=== PATIENT | female | born 1965 | race Caucasian/White ===

== ENCOUNTER 2016-09-27 12:03 | Outpatient (CLI) | payer MEDICAID ==
--- NOTE | 2016-09-27 16:56 | Mammography Report ---
DIGITAL DIAGNOSTIC BILATERAL MAMMOGRAM: 09/27/2016 CLINICAL INDICATION: Right breast pain. TECHNIQUE: Bilateral CC and MLO views, bilateral laterally exaggerated CC views, right true lateral v iew. Markers were placed at the site of maximal tenderness identified by the patient in the right upp er central breast. COMPARISON: Films from [place], [place] dated 05/08/2013, 02/14/2012. FINDINGS: The breasts demonstrate scattered fibroglandular densities bilaterally. A few punctate, ty pically benign calcifications are present. No suspicious masses, clustered microcalcifications, or re gions of architectural distortion are identified. IMPRESSION: BENIGN FINDINGS. RECOMMENDATION: ROUTINE ANNUAL SCREENING UNLESS OTHERWISE CLINICALLY INDICATED. BIRADS CATEGORY 2-BENIGN FINDINGS. STANDARD QUALIFYING STATEMENTS 1. This examination was reviewed with the aid of Computer-Aided Detection (CAD). 2. A negative or benign imaging report should not delay biopsy if clinically suspicious findings are present. Consider surgical consultation if warranted. More than 5% of cancers are not identified by i maging. 3. Dense breasts may obscure an underlying neoplasm. JOB #: [id number] EXT JOB #:[id number]
== END 2016-09-27 12:04 | disposition home or self-care (01) ==
LOC: DI 12:03
PROVIDERS: ATTEND Nurse Practitioner Family
DX: N64.4 Mastodynia (principal)
CPT/HCPCS: 77066

== ENCOUNTER 2017-05-01 08:02 | Outpatient (CLI) | payer MEDICAID ==
[2017-05-01 13:10] LABS: THYROID STIMULATING HORMONE 13.08 uIU/mL (0.34-5.60)
[2017-05-01 13:12] LABS: FERRITIN 16.2 ng/mL (11.0-306.8)
[2017-05-01 13:38] LABS: BASOPHILS % (AUTO) 0.9 %; EOSINOPHILS # (AUTO) 0.3 10^3/uL (0.0-0.7); HGB - HEMOGLOBIN 13.4 g/dL (12.0-16.0); LYMPHOCYTES # (AUTO) 1.5 10^3/uL (1.5-3.5); LYMPHOCYTES % (AUTO) 37.6 %; MEAN CORPUSCULAR HEMOGLOBIN 30.1 pg (27.0-31.0); MEAN CORPUSCULAR VOLUME 88.5 fL (81.0-99.0); MEAN PLATELET VOLUME 7.8 fL (7.9-10.8); MONOCYTES # (AUTO) 0.3 10^3/uL (0.0-1.0); NEUTROPHILS # (AUTO) 1.9 10^3/uL (1.5-6.6); NEUTROPHILS % (AUTO) 47.5 %; PLT - PLATELET COUNT 216 10^3/uL (130-450); RED BLOOD COUNT 4.45 10^6/uL (4.20-5.40); RED CELL DISTRIBUTION WIDTH 13.1 % (12.0-15.0); WHITE BLOOD COUNT 3.9 x10^3/uL (4.8-10.8)
[2017-05-01 13:46] LABS: % IRON SATURATION 21 % (20-50); ALBUMIN 4.2 g/dL (3.2-5.5); ALBUMIN/GLOBULIN RATIO 1.4 (1.0-2.2); ALKALINE PHOSPHATASE 35 IU/L (42-121); ALT ALANINE AMINOTRANSFERASE 13 IU/L (10-60); AST ASPARTATE AMINOTRANSFERASE 18 IU/L (10-42); BILIRUBIN,TOTAL 0.5 mg/dL (0.2-1.0); BUN - BLOOD UREA NITROGEN 15 mg/dL (6-20); CALCIUM 9.4 mg/dL (8.5-10.3); CARBON DIOXIDE - CO2 27 mmol/L (21-32); CHLORIDE 100 mmol/L (101-111); CHOL/HDL RATIO 3.5 (<4.4); CHOLESTEROL 197 mg/dL; CREATININE 0.9 mg/dL (0.4-1.0); GFR - MDRD 66 (>89); GLUCOSE 91 mg/dL (70-100); HDL CHOLESTEROL 57 mg/dL; IRON 75 ug/dL (28-170); LDL CHOLESTEROL,CALCULATED 116 mg/dL; SODIUM 136 mmol/L (135-145); TOTAL IRON BINDING CAPACITY 365 ug/dL (250-450); TOTAL PROTEIN 7.2 g/dL (6.7-8.2); TRANSFERRIN 261 mg/dL (192-382); VLDL CHOLESTEROL 24 mg/dL
[2017-05-01 13:54] LABS: FREE T4 (FREE THYROXINE) 0.64 ng/dL (0.58-1.64)
== END 2017-05-01 08:03 | disposition home or self-care (01) ==
LOC: LAB.F 08:02
PROVIDERS: ATTEND Physician Assistant Medical
DX: Z00.00 Encounter for general adult medical examination without abnormal findings (principal); Z13.89 Encounter for screening for other disorder; E55.9 Vitamin D deficiency, unspecified; E61.1 Iron deficiency; G25.81 Restless legs syndrome; Z13.0 Encounter for screening for diseases of the blood and blood-forming organs and certain disorders involving the immune mechanism
CPT/HCPCS: 36415; 80053; 80061; 82306; 82728; 83540; 84439; 84443; 84466; 85025

== ENCOUNTER 2017-05-11 08:41 | Outpatient (CLI) | payer MEDICAID ==
[2017-05-11 10:47] LABS: THYROID STIMULATING HORMONE 10.29 uIU/mL (0.34-5.60)
[2017-05-11 11:28] LABS: FREE T4 (FREE THYROXINE) 0.63 ng/dL (0.58-1.64)
== END 2017-05-11 08:42 | disposition home or self-care (01) ==
LOC: LAB.F 08:41
PROVIDERS: ATTEND Physician Assistant Medical
DX: Z13.29 Encounter for screening for other suspected endocrine disorder (principal); R94.6 Abnormal results of thyroid function studies
CPT/HCPCS: 36415; 84439; 84443; 84481

== ENCOUNTER 2017-05-31 10:46 | Outpatient (CLI) | payer MEDICAID ==
--- NOTE | 2017-05-31 17:05 | Ultrasound Report ---
THYROID ULTRASOUND: 05/31/2017 CLINICAL INDICATION: Abnormal thyroid function studies. TECHNIQUE: Real-time scanning was performed with sales representative trainee static images obtained. FINDINGS: The right lobe measures 5.6 x 1.9 x 1.9 cm, and the left lobe measures 4.2 x 1.8 x 1.5 cm. The isthmus measures 2 mm. Both lobes of the thyroid are diffusely heterogeneous, with multiple solid nodules present. The majority of the nodules are isoechoic, with circumscribed margins. The largest single nodule, in the posterior upper left lobe is hyperechoic, with circumscribed margins. As such, the nodules fall into the low suspicion category, and given that the mean diameter of the largest nodule is 1.2 cm, fine needle aspiration is not recommended by EMERALD criteria. IMPRESSION: MULTINODULAR THYROID, WITH NODULES HAVING AN APPEARANCE THAT FALLS INTO THE LOW SUSPICION CATEGORY BY EMERALD CRITERIA. SUCH, GIVEN THE SMALL SIZE OF THE NODULES, FINE NEEDLE ASPIRATION IS NOT RECOMMENDED BY EMERALD CRITERIA. TD: 05/31/2017 17:05
== END 2017-05-31 10:47 | disposition home or self-care (01) ==
LOC: DI 10:46
PROVIDERS: ATTEND Physician Assistant Medical
DX: E04.2 Nontoxic multinodular goiter (principal)
CPT/HCPCS: 76536

== ENCOUNTER 2017-06-11 12:14 | Day surgery (SDC) | payer MEDICAID ==
[2017-06-11] MEDS ORDERED: LACTATED RINGERS 1,000 ML IV ONE (12:45)
[2017-06-11] MEDS ORDERED: MIDAZOLAM 2 MG/2 ML VIAL IVP ONE (13:36)
[2017-06-11] MEDS ORDERED: fentaNYL 100 MCG/2 ML VIAL IVP ONE (13:36)
[2017-06-11 14:54] VITALS: BP 101/54
== END 2017-06-11 12:15 | disposition home or self-care (01) ==
LOC: SDS 12:14
PROVIDERS: ATTEND Surgery
PROC: 0DJD8ZZ Inspection of Lower Intestinal Tract, Via Natural or Artificial Opening Endoscopic (ICD-10-PCS; principal; 2017-06-11 13:30)
DX: Z12.11 Encounter for screening for malignant neoplasm of colon (principal); K64.8 Other hemorrhoids; J45.909 Unspecified asthma, uncomplicated
CPT/HCPCS: 45378; J7120

== ENCOUNTER 2018-06-04 07:58 | Outpatient (CLI) | payer OTHER | END 2018-06-04 07:59 | disposition home or self-care (01) | LOC: LAB.F 07:58 | PROVIDERS: ATTEND Physician Assistant Medical | DX: R94.6 Abnormal results of thyroid function studies (principal) | CPT/HCPCS: 36415; 84443; 84481 ==

== ENCOUNTER 2018-06-24 08:12 | Outpatient (CLI) | payer OTHER ==
[2018-06-24 10:49] LABS: BASOPHILS % (AUTO) 0.6 %; EOSINOPHILS # (AUTO) 0.2 10^3/uL (0.0-0.7); EOSINOPHILS % (AUTO) 6.4 %; HGB - HEMOGLOBIN 12.9 g/dL (12.0-16.0); LYMPHOCYTES # (AUTO) 1.7 10^3/uL (1.5-3.5); MEAN CORPUSCULAR HEMOGLOBIN 29.1 pg (27.0-31.0); MEAN CORPUSCULAR HGB CONC 34.4 g/dL (32.0-36.0); MEAN CORPUSCULAR VOLUME 84.8 fL (81.0-99.0); MEAN PLATELET VOLUME 7.6 fL (7.9-10.8); MONOCYTES # (AUTO) 0.3 10^3/uL (0.0-1.0); MONOCYTES % (AUTO) 7.4 %; NEUTROPHILS # (AUTO) 1.6 10^3/uL (1.5-6.6); NEUTROPHILS % (AUTO) 40.6 %; PLT - PLATELET COUNT 228 10^3/uL (130-450); RED BLOOD COUNT 4.41 10^6/uL (4.20-5.40); WHITE BLOOD COUNT 3.8 x10^3/uL (4.8-10.8)
[2018-06-24 10:53] LABS: ALBUMIN/GLOBULIN RATIO 1.5 (1.0-2.2); BILIRUBIN,TOTAL 0.5 mg/dL (0.2-1.0); CALCIUM 9.7 mg/dL (8.5-10.3); CREATININE 0.8 mg/dL (0.4-1.0); TOTAL PROTEIN 6.6 g/dL (6.7-8.2)
== END 2018-06-24 08:13 | disposition home or self-care (01) ==
LOC: LAB.F 08:12
PROVIDERS: ATTEND Physician Assistant Medical
DX: Z51.81 Encounter for therapeutic drug level monitoring (principal); Z79.899 Other long term (current) drug therapy
CPT/HCPCS: 36415; 80053; 85025

== ENCOUNTER 2019-12-19 14:10 | Outpatient (CLI) | payer MEDICAID | END 2019-12-19 14:11 | disposition home or self-care (01) | LOC: COV 14:10 | PROVIDERS: ATTEND Family Medicine | DX: J02.9 Acute pharyngitis, unspecified (principal); Z20.828 Contact with and (suspected) exposure to other viral communicable diseases ==

== ENCOUNTER 2020-03-10 12:38 | Outpatient (CLI) | payer MEDICAID ==
[2020-03-10 15:43] LABS: BASOPHILS % (AUTO) 0.6 %; EOSINOPHILS # (AUTO) 0.1 10^3/uL (0.0-0.7); EOSINOPHILS % (AUTO) 3.9 %; HGB - HEMOGLOBIN 12.8 g/dL (12.0-16.0); LYMPHOCYTES # (AUTO) 1.2 10^3/uL (1.5-3.5); LYMPHOCYTES % (AUTO) 34.6 %; MEAN CORPUSCULAR HEMOGLOBIN 29.1 pg (27.0-31.0); MEAN CORPUSCULAR HGB CONC 32.2 g/dL (32.0-36.0); MEAN CORPUSCULAR VOLUME 90.5 fL (81.0-99.0); MEAN PLATELET VOLUME 9.9 fL (7.9-10.8); MONOCYTES # (AUTO) 0.3 10^3/uL (0.0-1.0); NEUTROPHILS # (AUTO) 1.9 10^3/uL (1.5-6.6); NEUTROPHILS % (AUTO) 53.9 %; PLT - PLATELET COUNT 217 10^3/uL (130-450); RED CELL DISTRIBUTION WIDTH 12.9 % (12.0-15.0); WHITE BLOOD COUNT 3.6 x10^3/uL (4.8-10.8)
[2020-03-10 16:16] LABS: % IRON SATURATION 26 % (20-50); ALBUMIN 4.2 g/dL (3.2-5.5); ALBUMIN/GLOBULIN RATIO 1.3 (1.0-2.2); ALKALINE PHOSPHATASE 46 IU/L (42-121); ALT ALANINE AMINOTRANSFERASE 19 IU/L (10-60); AST ASPARTATE AMINOTRANSFERASE 22 IU/L (10-42); BILIRUBIN,TOTAL 0.6 mg/dL (0.2-1.0); BUN - BLOOD UREA NITROGEN 13 mg/dL (6-20); CALCIUM 9.5 mg/dL (8.5-10.3); CARBON DIOXIDE - CO2 28 mmol/L (21-32); CHLORIDE 102 mmol/L (101-111); CHOL/HDL RATIO 3.4 (<4.4); CHOLESTEROL 221 mg/dL; CREATININE 0.8 mg/dL (0.4-1.0); GLUCOSE 103 mg/dL (70-100); HDL CHOLESTEROL 65 mg/dL; IRON 105 ug/dL (28-170); LDL CHOLESTEROL,CALCULATED 128 mg/dL; SODIUM 139 mmol/L (135-145); TOTAL IRON BINDING CAPACITY 403 ug/dL (250-450); TOTAL PROTEIN 7.4 g/dL (6.7-8.2); TRANSFERRIN 288 mg/dL (192-382); VLDL CHOLESTEROL 28 mg/dL
== END 2020-03-10 12:39 | disposition home or self-care (01) ==
LOC: LAB.S 12:38
PROVIDERS: ATTEND Physician Assistant
DX: Z00.00 Encounter for general adult medical examination without abnormal findings (principal); Z51.81 Encounter for therapeutic drug level monitoring; R94.6 Abnormal results of thyroid function studies; E55.9 Vitamin D deficiency, unspecified; E61.1 Iron deficiency; L65.9 Nonscarring hair loss, unspecified; Z79.899 Other long term (current) drug therapy
CPT/HCPCS: 36415; 80053; 80061; 82728; 83540; 83721; 84443; 84466; 85025

== ENCOUNTER 2021-05-04 09:42 | Outpatient (CLI) | payer MEDICAID ==
--- NOTE | 2021-05-05 13:45 | Mammography Report ---
BILATERAL DIGITAL SCREENING MAMMOGRAM 3D/2D WITH EXAGGERATED CC: 05/04/2021 CLINICAL: Routine screening. Comparison is made to exams dated: 09/27/2016 mammogram - [facility] and 02/14/2012 mammogram - [facility]. There are scattered fibroglandular elements in both breast s. No significant masses, calcifications, or other findings are seen in either breast. There has been no significant interval change. IMPRESSION: NEGATIVE There is no mammographic evidence of malignancy. A 1 year screening mammogram is recommended. This exam was interpreted at Station ID: [id number]. NOTE: For mammograms, a report in lay terms will be sent to the patient. Approximately 15% of breast malignancies will not be visualized mammographically. In the management of a palpable breast mass, a negative mammogram must not discourage biopsy of a clinically suspicious lesion. Electronically Signed By: Jeramie Allen acr/penrad:05/04/2021 10:36:27 ACR BI-RADS Category 1: Negative 3341F PARENCHYMAL PATTERN: (A) - The breast(s) demonstrate(s) scattered fibroglandular densities. BI-RADS CATEGORY: (1) - 1 RECOMMENDATION: (ANNUAL) - Recommend routine annual screening mammography. [id number] 1 year screening LATERALITY: (B)
== END 2021-05-04 09:43 | disposition home or self-care (01) ==
LOC: DI.S 09:42
PROVIDERS: ATTEND Registered Nurse
DX: Z12.31 Encounter for screening mammogram for malignant neoplasm of breast (principal)

== ENCOUNTER 2021-06-15 15:12 | Outpatient (CLI) | payer MEDICAID ==
--- NOTE | 2021-06-18 14:56 | Ultrasound Report ---
PROCEDURE: Head or Neck Soft Tissue INDICATIONS: HYPOTHYROIDISM TECHNIQUE: Real-time scanning was performed of the thyroid gland, with image documentation. COMPARISON: Thyroid ultrasound 05/31/2017 FINDINGS: Right: Thyroid lobe measures 5.1 x 1.8 x 2.3 cm, and is heterogeneous in echotexture. Left: Thyroid lobe measures 4.5 x 1.9 x 1.5 cm, and is heterogeneous in echotexture. Isthmus: 2 mm thick. Nodule number: One Location: Right superior Size: 0.7 x 0.5 x 0.6 cm compared to 0.8 x 0.7 x 0.8 cm. Composition: Solid Echogenicity: Hypoechoic Shape: wider than tall. Margins: Smooth Echogenic foci: None Total points: 4 ACR TI-RADS category: 4 Nodule number: Two Location: Right midlung Size: 0.9 x 0.6 x 1.0 cm compared to 0.9 x 0.8 x 0.8 cm. Composition: 7 Echogenicity: Isoechoic Shape: wider than tall. Margins: Smooth Echogenic foci: None Total points: 4 ACR TI-RADS category: 4 Nodule number: Three Location: Right inferior Size: 1.2 x 1.0 x 1.2 cm compared to 1.0 x 0.9 x 1.0 cm. Composition: Predominantly solid Echogenicity: Hypoechoic Shape: wider than tall. Margins: Smooth Echogenic foci: None Total points: 4 ACR TI-RADS category: 4 Nodule number: Four Location: Right inferior Size: 1.2 x 1.0 x 1.4 cm compared to 1.1 x 1.1 x 1.4 cm. Composition: Prominently solid Echogenicity: Size Shape: Hypoechoic Margins: Smooth Echogenic foci: None Total points: 4 ACR TI-RADS category: 4 Nodule number: 5 Location: Left superior Size: 1.4 x 0.9 x 1.1 cm compared to 1.3 x 1.0 x 1.2 cm cm. Composition: Sagittal Echogenicity: Isoechoic Shape: wider than tall. Margins: Smooth Echogenic foci: None Total points: 4 ACR TI-RADS category: 4 Nodule number: 6 Location: Left medial mid lobe Size: 0.7 x 0.4 x 0.7 cm compared to 0.7 x 0.5 x 0.7 cm. Composition: Solid Echogenicity: Hypoechoic Shape: wider than tall. Margins: Smooth Echogenic foci: None Total points: 4 ACR TI-RADS category: TI-RADS Nodule number: 7 Location: Left mid lateral Size: 0.9 x 0.6 x 0.7 cm compared to 0.7 x 0.8 x 0.6 cm. Composition: Solid Echogenicity: Hypoechoic Shape: wider than tall. Margins: Smooth Echogenic foci: None Total points: Size ACR TI-RADS category: 4 IMPRESSION: Multiple thyroid lobe nodules relatively stable compared to prior exam. Lesions 1, 2, 6 and 7 are considered category 4. Secondary to small size, no additional follow-up is recommended. Lesions 3, 4 and 5 are considered category 4,follow-up at 1, 2, 3 and 5 years from initial visualizat ion is recommended. It is noted that initial visualization was in 2018, making current follow-up at t he 4 year sheba. ACR TI-RADS definitions and recommendations: TI-RADS 1 (benign): 0 points. FNA not needed. TI-RADS 2 (not suspicious): 2 points. FNA not needed. TI-RADS 3 (mildly suspicious): 3 points. "FNA if 2.5 cm or larger, follow up if 1.5 cm or larger (at 1, 3, and 5 years). TI-RADS 4 (moderately suspicious): 4-6 points. "FNA if 1.5 cm or larger, follow up if 1 cm or larger (at 1, 2, 3, and 5 years). TI-RADS 5 (highly suspicious): 7 points or more. "FNA if 1 cm or larger, follow up if 0.5 cm or larger (every year for 5 years). Reviewed by: Sharon Kuo MD on 06/18/2021 2:55 PM PST Approved by: Sharon Kuo MD on 06/18/2021 2:55 PM PST Station ID: [id number]
== END 2021-06-15 15:13 | disposition home or self-care (01) ==
LOC: DI 15:12
PROVIDERS: ATTEND Internal Medicine
DX: E03.9 Hypothyroidism, unspecified (principal); E04.2 Nontoxic multinodular goiter

== ENCOUNTER 2022-02-27 14:02 | Outpatient (CLI) | payer MEDICAID ==
[2022-02-27 19:42] LABS: BASOPHILS % (AUTO) 0.4 %; EOSINOPHILS # (AUTO) 0.3 10^3/uL (0.0-0.7); EOSINOPHILS % (AUTO) 5.6 %; HCT - HEMATOCRIT 40.9 % (37.0-47.0); HGB - HEMOGLOBIN 13.5 g/dL (12.0-16.0); LYMPHOCYTES # (AUTO) 1.6 10^3/uL (1.5-3.5); LYMPHOCYTES % (AUTO) 33.5 %; MEAN CORPUSCULAR HEMOGLOBIN 29.6 pg (27.0-31.0); MEAN CORPUSCULAR VOLUME 89.7 fL (81.0-99.0); MEAN PLATELET VOLUME 9.8 fL (7.9-10.8); MONOCYTES # (AUTO) 0.3 10^3/uL (0.0-1.0); MONOCYTES % (AUTO) 7.1 %; NEUTROPHILS # (AUTO) 2.6 10^3/uL (1.5-6.6); NEUTROPHILS % (AUTO) 53.2 %; PLT - PLATELET COUNT 199 10^3/uL (130-450); RED BLOOD COUNT 4.56 10^6/uL (4.20-5.40); RED CELL DISTRIBUTION WIDTH 12.6 % (12.0-15.0); WHITE BLOOD COUNT 4.8 x10^3/uL (4.8-10.8)
[2022-02-27 20:12] LABS: ALBUMIN 4.3 g/dL (3.2-5.5); ALBUMIN/GLOBULIN RATIO 1.3 (1.0-2.2); ALKALINE PHOSPHATASE 51 IU/L (42-121); ALT ALANINE AMINOTRANSFERASE 19 IU/L (10-60); AST ASPARTATE AMINOTRANSFERASE 20 IU/L (10-42); BILIRUBIN,TOTAL 0.7 mg/dL (0.2-1.0); BUN - BLOOD UREA NITROGEN 14 mg/dL (6-20); CALCIUM 9.5 mg/dL (8.5-10.3); CARBON DIOXIDE - CO2 28 mmol/L (21-32); CHLORIDE 104 mmol/L (101-111); CHOL/HDL RATIO 3.2 (<4.4); CHOLESTEROL 218 mg/dL; CREATININE 0.7 mg/dL (0.4-1.0); GFR - MDRD 86 (>89); GLUCOSE 91 mg/dL (70-100); HDL CHOLESTEROL 68 mg/dL; LDL CHOLESTEROL,CALCULATED 135 mg/dL; SODIUM 138 mmol/L (135-145); TOTAL PROTEIN 7.5 g/dL (6.7-8.2); TRIGLYCERIDES 75 mg/dL; VLDL CHOLESTEROL 15 mg/dL
[2022-02-27 20:25] LABS: THYROID STIMULATING HORMONE 4.32 uIU/mL (0.34-5.60)
== END 2022-02-27 14:03 | disposition home or self-care (01) ==
LOC: LAB.S 14:02
PROVIDERS: ATTEND Registered Nurse
DX: E03.9 Hypothyroidism, unspecified (principal); Z13.220 Encounter for screening for lipoid disorders
CPT/HCPCS: 36415; 80053; 80061; 83721; 84443; 85025

== ENCOUNTER 2022-04-24 10:46 | Outpatient (CLI) | payer MEDICAID ==
--- NOTE | 2022-04-25 10:30 | Mammography Report ---
BILATERAL DIGITAL SCREENING MAMMOGRAM 3D/2D WITH EXAGGERATED CC: 04/24/2022 CLINICAL: Routine screening. Comparison is made to exams dated: 05/04/2021 mammogram and 09/27/2016 mammogram - [facility]. There are scattered areas of fibroglandular density in both breasts (category b / 25%-50% glandular t issue). No significant masses, calcifications, or other findings are seen in either breast. There has been no significant interval change. IMPRESSION: NEGATIVE There is no mammographic evidence of malignancy. A 1 year screening mammogram is recommended. Based on the Tyrer Cuzick model (a risk assessment model) the patients lifetime risk is 6.7% and her 10 year risk is 2.3%. According to the ACR, ACS, and NCCN guidelines, an annual breast MRI exam luci g with mammogram is recommended if the patients lifetime risk is 20% or greater. This exam was interpreted at Station ID: [id number]. NOTE: For mammograms, a report in lay terms will be sent to the patient. Approximately 15% of breast malignancies will not be visualized mammographically. In the management of a palpable breast mass, a negative mammogram must not discourage biopsy of a clinically suspicious lesion. Electronically Signed By: Garrett morrison/juan:04/24/2022 11:43:13 ACR BI-RADS Category 1: Negative 3341F PARENCHYMAL PATTERN: (A) - The breast(s) demonstrate(s) scattered fibroglandular densities. BI-RADS CATEGORY: (1) - 1 RECOMMENDATION: (ANNUAL) - Recommend routine annual screening mammography. [id number] 1 year screening LATERALITY: (B)
== END 2022-04-24 10:47 | disposition home or self-care (01) ==
LOC: DI.S 10:46
DX: Z12.31 Encounter for screening mammogram for malignant neoplasm of breast (principal)

== ENCOUNTER 2023-02-21 08:33 | Outpatient (CLI) | payer BC ==
[2023-02-21 14:45] LABS: BASOPHILS % (AUTO) 0.9 %; EOSINOPHILS # (AUTO) 0.3 10^3/uL (0.0-0.7); EOSINOPHILS % (AUTO) 9.9 %; HCT - HEMATOCRIT 42.2 % (37.0-47.0); HGB - HEMOGLOBIN 13.6 g/dL (12.0-16.0); LYMPHOCYTES # (AUTO) 1.5 10^3/uL (1.5-3.5); MEAN CORPUSCULAR HEMOGLOBIN 29.5 pg (27.0-31.0); MEAN CORPUSCULAR HGB CONC 32.2 g/dL (32.0-36.0); MEAN CORPUSCULAR VOLUME 91.5 fL (81.0-99.0); MEAN PLATELET VOLUME 9.8 fL (7.9-10.8); MONOCYTES # (AUTO) 0.2 10^3/uL (0.0-1.0); MONOCYTES % (AUTO) 6.9 %; NEUTROPHILS # (AUTO) 1.2 10^3/uL (1.5-6.6); PLT - PLATELET COUNT 196 10^3/uL (130-450); RED BLOOD COUNT 4.61 10^6/uL (4.20-5.40); RED CELL DISTRIBUTION WIDTH 12.8 % (12.0-15.0); WHITE BLOOD COUNT 3.3 x10^3/uL (4.8-10.8)
[2023-02-21 15:14] LABS: THYROID STIMULATING HORMONE 8.48 uIU/mL (0.34-5.60)
[2023-02-21 16:34] LABS: ALBUMIN 4.6 g/dL (3.2-5.5); ALBUMIN/GLOBULIN RATIO 1.8 (1.0-2.2); ALKALINE PHOSPHATASE 57 IU/L (42-121); ALT ALANINE AMINOTRANSFERASE 19 IU/L (10-60); AST ASPARTATE AMINOTRANSFERASE 22 IU/L (10-42); BILIRUBIN,TOTAL 0.5 mg/dL (0.2-1.0); BUN - BLOOD UREA NITROGEN 13 mg/dL (6-20); CALCIUM 9.6 mg/dL (8.5-10.3); CARBON DIOXIDE - CO2 30 mmol/L (21-32); CHLORIDE 105 mmol/L (101-111); CHOL/HDL RATIO 3.6 (<4.4); CHOLESTEROL 213 mg/dL; CREATININE 0.8 mg/dL (0.6-1.3); GFR - MDRD 74 (>89); GLUCOSE 89 mg/dL (74-104); HDL CHOLESTEROL 60 mg/dL; LDL CHOLESTEROL,CALCULATED 133 mg/dL; LDL/HDL RATIO 2.2 (<4.4); POTASSIUM 4.4 mmol/L (3.5-4.5); SODIUM 139 mmol/L (135-145); TOTAL PROTEIN 7.1 g/dL (6.4-8.9); TRIGLYCERIDES 99 mg/dL (48-352); VLDL CHOLESTEROL 20 mg/dL
== END 2023-02-21 08:34 | disposition home or self-care (01) ==
LOC: LAB.S 08:33
PROVIDERS: ATTEND Nurse Practitioner Acute Care
DX: Z13.228 Encounter for screening for other metabolic disorders (principal); Z13.220 Encounter for screening for lipoid disorders; Z13.29 Encounter for screening for other suspected endocrine disorder; Z13.0 Encounter for screening for diseases of the blood and blood-forming organs and certain disorders involving the immune mechanism
CPT/HCPCS: 36415; 80053; 80061; 83721; 84439; 84443; 85025

== ENCOUNTER 2023-02-22 19:22 | Outpatient (CLI) | payer BC ==
--- NOTE | 2023-02-23 16:59 | Ultrasound Report ---
PROCEDURE: Pelvic w/Transvaginal INDICATIONS: POSTMENOPAUSAL BLEEDING TECHNIQUE: Real-time scanning was performed of the pelvic organs, with image documentation. Additional endovagi nal scanning was necessary due to incomplete visualization of the adnexal and endometrial structures by transabdominal scanning. COMPARISON: None. FINDINGS: Uterus: Uterus is anteverted and normal in size at 7.4 x 4.6 x 5.5 cm. The myometrium is heterogene ous. The endometrium measures 6.3 mm in combined thickness. Left lateral focus of heterogeneous ech ogenicity measuring 1.5 x 1.8 x 1.2 cm. Ovaries: The right ovary measures 1.4 x 0.9 x 2.1 cm, with a calculated ovarian volume of 1.4 cc. T he left ovary is not well seen. Other: No pathologic free abdominal or pelvic fluid. IMPRESSION: Focus of left lateral heterogeneous echogenicity suggestive of small intramural fibroid. In addition, endometrium is thickened for postmenopausal age with bleeding. Further evaluation with e ndometrial sampling is recommended. No distinct mass. Reviewed by: Sharon Kuo MD on 02/23/2023 4:58 PM PST Approved by: Sharon Kuo MD on 02/23/2023 4:58 PM PST Station ID: [id number]
== END 2023-02-22 19:23 | disposition home or self-care (01) ==
LOC: DI 19:22
PROVIDERS: ATTEND Nurse Practitioner Acute Care
DX: N95.0 Postmenopausal bleeding (principal); R93.89 Abnormal findings on diagnostic imaging of other specified body structures

== ENCOUNTER 2023-04-03 07:40 | Outpatient (CLI) | payer BC ==
--- NOTE | 2023-04-03 07:31 | CARDIAC PROCEDURE NOTE ---
Stress Test Report Service Date: 04/03/23 Service Time: 08:00 Ordering Provider: Shavon Velez ARNP Indication for Test: Assess chest discomfort. Significant Medical History: Tami is referred for a treadmill stress echocardiogram today, to evaluate two significant episodes of chest discomfort occurring about 1 year apart. Last fall while traveling in [place] she had a chest pain episode of similar nature to the recent one, that prompted an evaluation at a local clinic, where she was told that an EKG was normal. She had no recurrence until a few weeks ago, when she awoke from sleep with heavy central chest discomfort that radiated up to her neck and posteriorly to her back. There was no associated nausea, vomiting, diaphoresis or lightheadedness and after she arose and moved about the symptoms resolved after about 10 minutes. She works as a massage therapist and is active outside the workplace, doing yoga and walking in her neighborhood, though she does limit the intensity/duration of her walking due to her asthma, which may not be optimally treated currently. She has not had any exertional chest discomfort nor any recent decrease in her exercise capacity. As part of this evaluation she also underwent a 7-day ambulatory monitoring study that showed 2 brief episodes of atrial tachycardia and no other findings of concern. Cardiac Risk Factors: Positive for family history of coronary artery disease in her mother who at about the same age underwent a coronary stent procedure (she notes that her mother was a longtime smoker); no personal history of tobacco smoking ever, hypertension, diabetes or known hyperlipidemia (though recent lipids on 02/21/2023 did include TC 213 [id number], HDLc 60, TG 99). Type of Stress Test: ETT with Echocardiography Procedure: -Exercise Treadmill Test- After signing informed consent, the patient underwent echo imaging at rest and then performed treadmill exercise using a Oleg protocol. The patient exercised for 4 minutes 41 seconds and achieved a peak heart rate of 164 (101 percent predicted maximum heart rate for age), and an estimated workload of 6.6 METS. The test was terminated due to fatigue/shortness of breath. Resting heart rate: 66 Peak heart rate: 164 NormalAbnormal response to exercise. Resting BP: 124/83 Peak BP: 187/75 Normal BP response to exercise. Rhythm during exercise: Sinus rhythm throughout with occasional isolated PVCs and 2 PVC couplets noted; there were 32 PVCs documented in the computer record. Symptoms: She reported no chest pressure/discomfort/pain whatsoever; dyspnea was limiting, which she attributed both to her asthma and some deconditioning. EKG at rest showed . Normal sinus rhythm notable only for slight [place] prolongation (203 ms). EKG at peak stress showed no ischemia by EKG criteria. In Recovery her BP dropped from exertional peak (155/95) to 124/76, with subsequent increase to study peak of 187/75 and then stepwise decline towards baseline (154/78 at 9:00); heart rate declined rapidly/normally towards baseline (93 at 9:00). Echo imaging, performed at rest and with stress, will be reported separately. IPrashanth MD, was present throughout this treadmill stress study and supervised it in its entirety. Summary: 1) Exercise tolerance markedly reduced for age and sex as evidenced by CLAY of 32%. 2) Normal resting EKG. 3) Adequate level of exercise was achieved on this treadmill stress test. 4) Normal BP response to exercise. 5) No ischemic changes by EKG criteria were seen at peak stress. 6) Echo image interpretation reveals normal left ventricular size, wall thickness and systolic function, with appropriate hyperdynamic augmentation of all segments with exercise, indicating no evidence of prior infarct or inducible ischemia. No significant valvular abnormality or elevation of estimated pulmonary artery systolic pressure seen on screening study. See separate report for more details. Conclusions and Recommendations: 1) This test is most notable for reduced exercise capacity, apparently related to asthma and relative deconditioning. However there was no symptom, EKG or echocardiographic evidence of inducible ischemia, nor oxygen desaturation observed. 2) She mentioned being off her chronic steroid inhaler due to an insurance issue, which she is encouraged to pursue further with her referring provider. 3) We discussed that given her mother's history of a CAD event in her late 50's (albeit with heavy smoking history) and Tami's recently calculated LDLc of 133, treatment with a low dose of atorvastatin or rosuvastatin for primary prevention would be reasonable; she will also discuss this with Ms Velez at an upcoming scheduled visit.
== END 2023-04-03 07:41 | disposition home or self-care (01) ==
LOC: DI 07:40
PROVIDERS: ATTEND Nurse Practitioner Acute Care
DX: R07.9 Chest pain, unspecified (principal); Z82.49 Family history of ischemic heart disease and other diseases of the circulatory system
CPT/HCPCS: 93350

== ENCOUNTER 2023-11-20 11:00 | Day surgery (SDC) | payer BC ==
[2023-11-20] MEDS: LACTATED RINGERS 1,000 ML IV ONE (11:02)
[2023-11-20] MEDS: ACETAMINOPHEN 325 MG TABLET PO ONE (11:46)
[2023-11-20 11:49] LABS: BASOPHILS % (AUTO) 0.3 %; EOSINOPHILS # (AUTO) 0.1 10^3/uL (0.0-0.7); EOSINOPHILS % (AUTO) 3.8 %; HCT - HEMATOCRIT 39.8 % (37.0-47.0); HGB - HEMOGLOBIN 13.1 g/dL (12.0-16.0); LYMPHOCYTES # (AUTO) 1.3 10^3/uL (1.5-3.5); LYMPHOCYTES % (AUTO) 40.3 %; MEAN CORPUSCULAR HEMOGLOBIN 29.6 pg (27.0-31.0); MEAN CORPUSCULAR HGB CONC 32.9 g/dL (32.0-36.0); MEAN CORPUSCULAR VOLUME 89.8 fL (81.0-99.0); MEAN PLATELET VOLUME 9.2 fL (7.9-10.8); MONOCYTES # (AUTO) 0.2 10^3/uL (0.0-1.0); MONOCYTES % (AUTO) 7.6 %; NEUTROPHILS # (AUTO) 1.5 10^3/uL (1.5-6.6); PLT - PLATELET COUNT 170 10^3/uL (130-450); RED BLOOD COUNT 4.43 10^6/uL (4.20-5.40); RED CELL DISTRIBUTION WIDTH 12.7 % (12.0-15.0); WHITE BLOOD COUNT 3.2 x10^3/uL (4.8-10.8)
[2023-11-20] MEDS ORDERED: BUPIVACAINE 0.25% PF 10 ML VIAL ONE (13:15)
[2023-11-20] MEDS ORDERED: SILVER NITRATE APPLICATOR TOP ONE (13:15)
--- NOTE | 2023-11-20 13:15 | HISTORY & PHYSICAL EXAMINATION ---
History of Present Illness - History of Present Illness HPI Comment/Other: HPI: Patient is a 58-year-old postmenopausal female present today for hysteroscopy, D&C for postmenopausal bleeding. She also had a Pap smear recently with endometrial cells present. Subsequent pelvic ultrasound showed an endometrial echo of 6.3 mm. 1.8 cm left lateral intramural fibroid. Endometrial biopsy on 10/15/2023 showed stripped atrophic endometrial epithelium without atypia, but due to the concern for possible lignan C, elected for hysteroscopy D&C for suspected management. Finally All other symptoms reviewed and were negative except per HPI. PMH Nasal polyps Asthma Hypothyroidism History of colposcopy and cryotherapy for HPV PSH Nasal surgery 2009, 2011 1984 x 4 Tubal ligation SH Denies tobacco, alcohol, does have occasional alcohol use. Family History Mother: Heart disease, hypertension Allergies NSAIDs Singulair Medications Levothyroxine Budesonide/formoterol Albuterol Iodine Well BM route Glucosamine Probiotics Cetirizine Vitamin C Physical exam: General: Alert, oriented, no acute distress Head: Normal cephalic atraumatic Eyes: PERRLA, extraocular motions intact. Respiratory: Normal rate of respiration. No accessory muscle use, normal respiratory effort. Cardiovascular: Regular rate and rhythm Abdomen: Nontender, nondistended Extremities: Normal range of motion Neuro: Oriented x3. Normal movements Psych: Appropriate mood and affect. Normal judgment and insight Plan 58-year-old postmenopausal female with postmenopausal bleeding and endometrial cells on Pap 1. Postmenopausal bleeding -Thickened endometrium on ultrasound, but negative biopsy, but given the endometrial cells, will look more closely with hysteroscopy and targeted D&C. -Discussed the risk, benefits, alternatives of hysteroscopy, D&C including infection, bleeding, damage to other organs, pain. Also has the risk of perforation and inability complete procedure. Patient is agreement and would like to proceed. 2. Abnormal Pap smear -Endometrial cells present. Will assess cellularity of uterus. History - Past Medical History Cardiovascular: reports: High cholesterol Respiratory: reports: Asthma Endocrine/Autoimmune: reports: HyPOthyroidism GI: reports: None : reports: Other HEENT: reports: Chronic vision loss, Chronic sinusitis Psych: reports: None Musculoskeletal: reports: Osteoarthritis Derm: reports: Eczema, Rosacea MRSA Hx?: No - Past Surgical History General: reports: Colonoscopy /TC OPERATOR: reports: section, Tubal ligation, Other HEENT: reports: Other Meds/Allgy - Home Medications Home Medications: Ambulatory Orders Medication Instructions Recorded Confirmed Albuterol Sulf [Ventolin Hfa 1 - 2 puffs INH Q4HR PRN 11/15/23 11/20/23 Inhaler] Budesonide/Formoterol Fumarate 2 puffs IH BID 11/15/23 11/20/23 [Breyna 80-4.5 Mcg Inhaler] Cetirizine [ZyrTEC] 10 mg PO DAILY 11/15/23 11/20/23 Levothyroxine [Synthroid] 75 mcg PO QDAC 11/15/23 11/20/23 Pseudoephedrine [Sudafed] 30 mg PO Q6H PRN 11/15/23 11/15/23 Red Yeast Rice Extract [Red Yeast 55 mg PO DAILY 11/15/23 11/20/23 Rice] - Allergies Allergies/Adverse Reactions: Allergies Allergy/AdvReac Type Severity Reaction Status Date / Time montelukast [From [facility]] Allergy depressed Verified 11/15/23 14:52 NSAIDS (Non-Steroidal Allergy Anaphylaxis Verified 06/11/17 12:39 Anti-Inflamma Exam - Vital Signs Vital Signs: Vital Signs x48h Temp Pulse Resp BP Pulse Ox 11/20/23 11:09 96.8 F L 57 L 16 136/82 H 100 Conclusion/Plan - Lab Results Fish Bones: 11/20/23 11:40
--- NOTE | 2023-11-20 13:54 | ANESTHESIA ---
Pre-Anesthesia VS, & Labs - Diagnosis postmenopausal bleeding, - Procedure hysteroscopy with myosure Vital Signs: Temp Pulse Resp BP Pulse Ox O2 Flow Rate 36 C L 57 L 16 136/82 H 100 11/20/23 11:09 11/20/23 11:09 11/20/23 11:09 11/20/23 11:11/20/23 11:09 Height: 5 ft 8 in Weight (kg): 75.8 kg Body Mass Index: 25.4 BMI Classification: Overweight - NPO >8 hours - Is Patient ?: No - Lab Results Current Lab Results: Laboratory Tests 11/20/23 11:40: WBC 3.2 L, RBC 4.43, Hgb 13.1, Hct 39.8, MCV 89.8, MCH 29.6, MCHC 32.9, RDW 12.7, Plt Count 170, MPV 9.2, Neut # (Auto) 1.5, Lymph # (Auto) 1.3 L, Darke # (Auto) 0.2, Eos # (Auto) 0.1, Baso # (Auto) 0.0, Absolute Nucleated RBC 0.00, Nucleated RBC % 0.0 Fish Bones: 11/20/23 11:40 Home Medications and Allergies Home Medications: Ambulatory Orders Albuterol Sulf [Ventolin Hfa Inhaler] 1 - 2 puffs INH Q4HR PRN 11/15/23 Budesonide/Formoterol Fumarate [Breyna 80-4.5 Mcg Inhaler] 2 puffs IH BID 11/15/23 Cetirizine [ZyrTEC] 10 mg PO DAILY 11/15/23 Levothyroxine [Synthroid] 75 mcg PO QDAC 11/15/23 Pseudoephedrine [Sudafed] 30 mg PO Q6H PRN 11/15/23 Red Yeast Rice Extract [Red Yeast Rice] 55 mg PO DAILY 11/15/23 Albuterol Sulf [Ventolin Hfa Inhaler] 1 - 2 puffs INH Q4HR PRN 11/15/23 Budesonide/Formoterol Fumarate [Breyna 80-4.5 Mcg Inhaler] 2 puffs IH BID 11/15/23 Cetirizine [ZyrTEC] 10 mg PO DAILY 11/15/23 Levothyroxine [Synthroid] 75 mcg PO QDAC 11/15/23 Pseudoephedrine [Sudafed] 30 mg PO Q6H PRN 11/15/23 Red Yeast Rice Extract [Red Yeast Rice] 55 mg PO DAILY 11/15/23 Allergies/Adverse Reactions: Allergies Allergy/AdvReac Type Severity Reaction Status Date / Time montelukast [From Singulair] Allergy depressed Verified 11/15/23 14:52 NSAIDS (Non-Steroidal Allergy Anaphylaxis Verified 06/11/17 12:39 Anti-Inflamma Anes History & Medical History - Anesthetic History Anesthesia Complications: reports: No previous complications - Medical History Cardiovascular: reports: High cholesterol Pulmonary: reports: Asthma Gastrointestinal: reports: None Urinary: reports: Other Musculoskeletal: reports: Osteoarthritis Endocrine/Autoimmune: reports: HyPOthyroidism Skin: reports: Eczema, Rosacea Smoking Status: Never smoker Psychosocial: reports: Alcohol (wine couple times a week) - Surgical History General: reports: Colonoscopy Eyes Ears Nose Throat (EENT): reports: Other Gynecologic: reports: section, Tubal ligation, Other Exam General: Alert Dental: WNL Mouth Opening: Greater than 4 Fingerbreadths Neck Mobility: Normal Mallampati classification: II Thyromental Distance: greater than 6 cm Respiratory: Lungs clear Cardiovascular: Regular rate Plan Anesthesia Type: General Consent for Procedure(s) Verified and Reviewed: Yes Code Status: Attempt Resuscitation ASA classification: 2-Mild systemic disease Is this case an emergency?: No
[2023-11-20] MEDS ORDERED: fentaNYL 100 MCG/2 ML VIAL ONE (14:04)
[2023-11-20] MEDS ORDERED: MIDAZOLAM 2 MG/2 ML VIAL ONE (14:04)
[2023-11-20] MEDS ORDERED: LIDOCAINE-PF 2% 10 ML AMP SUBQ ONE (14:04)
[2023-11-20] MEDS ORDERED: PROPOFOL 200 MG/20 ML VIAL IVP ONE (14:04)
[2023-11-20] MEDS ORDERED: GLYCOPYRROLATE 1 MG/5 ML VIAL ONE (14:34)
[2023-11-20] MEDS: BUPIVACAINE 0.25% PF 30 ML VIAL SUBQ ONE (14:35)
[2023-11-20] MEDS ORDERED: DEXAMETHASONE 4 MG/ML VIAL ONE (14:40)
[2023-11-20] MEDS ORDERED: ONDANSETRON 4 MG/2 ML VIAL ONE (14:40)
[2023-11-20] MEDS: LACTATED RINGERS 200 ML IV ONE ×2 (14:55→15:11)
[2023-11-20] MEDS ORDERED: MORPHINE 2 MG/ML CARPUJECT IVP PRN (15:04)
[2023-11-20] MEDS ORDERED: ATROPINE ABBOJECT 1 MG/10 ML SYRINGE IVP PRN (15:04)
[2023-11-20] MEDS ORDERED: METOCLOPRAMIDE 10 MG/2 ML VIAL IVP PRN (15:04)
[2023-11-20] MEDS ORDERED: HYDROmorphone 0.5 MG/0.5 ML SYRINGE IVP PRN (15:04)
[2023-11-20] MEDS ORDERED: NALOXONE 0.4 MG/ML VIAL IVP PRN (15:04)
[2023-11-20] MEDS ORDERED: ONDANSETRON 4 MG/2 ML VIAL IVP PRN (15:04)
[2023-11-20] MEDS ORDERED: fentaNYL 100 MCG/2 ML VIAL IVP PRN (15:04)
[2023-11-20] MEDS ORDERED: ePHEDrine 50 MG/ML VIAL IVP PRN (15:04)
--- NOTE | 2023-11-20 15:13 | ANESTHESIA POST OP EVALUATION ---
Anesthesia Post Eval - Post Anesthesia Eval Vitals: Last Vital Signs Temp 36.1 C L 11/20/23 15:09 Pulse 69 11/20/23 15:09 Resp 16 11/20/23 15:09 BP 123/75 11/20/23 15:09 Pulse Ox 100 11/20/23 15:09 O2 Flow Rate CV Function Including HR & BP: Stable Pain Control: Satisfactory Nausea & Vomiting: Negative Mental Status: Baseline Respiratory Status: Airway Patent Hydration Status: Satisfactory Anesthesia Complications: None
[2023-11-20 15:43] VITALS: BP 130/79
[2023-11-20] MEDS ORDERED: HYDROcod/ACETAM 5/325 MG TABLET PO PRN (15:49)
--- NOTE | 2023-11-20 15:51 | OPERATIVE REPORT ---
Operative Report - General Planned Procedure: Hysteroscopy with MyoSure dilation and curettage Pre-Op Diagnosis: Postmenopausal bleeding Procedure Performed: Hysteroscopy with MyoSure dilation and curettage Post Op Diagnosis: Status post hysteroscopy dilation and curettage - Procedure Note Primary Surgeon: Venkata Yanes MD Anesthesia Provider: Derek Mack CRNA Pathology: Endometrial curettings Estimated Blood Loss (mL): 5 Findings: Atrophic appearing endometrium. Possible arcuate uterus. Bilateral tubal ostia noted. Nonstenotic cervical os. Complications: None - Other Other Information/Narrative: Patient was taken to the procedure room and placed in dorsal lithotomy position. Hibiclens was used to clean the operative area. [place] speculum was palced in the vagina and the cervix was visualized. Time out was taken. The anterior lip the cervix was grasped with a single-tooth tenaculum. The cervix was non- stenotic and allowed the easy passage of dilators. Hysteroscope was then used to hydrodilate using normal saline distention media. Hysteroscope was advanced without difficulty using hydrodistention. Cervical canal was noted to have no lesions. Upon entry into the internal cervical os there was noted to be atrophic endometrium within the uterus. The fundus appeared to have possibly a arcuate shaped versus possible small fibroid. The MyoSure device was used to shave off a portion of that area and was sent to pathology. Bilateral tubal ostia were noted. Hysteroscope was then removed. A sharp curette was then performed. Specimen was sent to pathology. Tenaculum was then removed from the cervix no gwyn to be hemostatic. All instruments removed from the vagina Fluid deficit 90ml.
[2023-11-20 15:58] VITALS: O2SAT 98
[2023-11-20] MEDS ORDERED: LACTATED RINGERS 1,000 ML IV SCH (16:00)
== END 2023-11-20 11:01 | disposition home or self-care (01) ==
LOC: SDS 11:00
PROVIDERS: ATTEND Obstetrics & Gynecology
PROC: 0UDB8ZZ Extraction of Endometrium, Via Natural or Artificial Opening Endoscopic (ICD-10-PCS; principal; 2023-11-20 12:00)
DX: N95.0 Postmenopausal bleeding (principal); R87.619 Unspecified abnormal cytological findings in specimens from cervix uteri; N85.00 Endometrial hyperplasia, unspecified; J45.909 Unspecified asthma, uncomplicated
CPT/HCPCS: 36415; 58558; 85025; A9270; J7120